=== PATIENT | male | born 1970 | race Caucasian/White ===

== ENCOUNTER → 2020-11-23 08:32 | Outpatient (CLI) | payer OTHER, SELFPAY ==
[2020-11-23 10:39] LABS: COVID19 -Nasal RAPID Negative (Negative)
== END ==
PROVIDERS: Visit Provider Nurse Practitioner Family
DX: Z20.822 Contact with and (suspected) exposure to COVID-19 (principal)
CPT/HCPCS: 87635; C9803

== ENCOUNTER 2021-11-22 22:01 | Emergency (ER) | payer OTHER, SELFPAY ==
[2021-11-22] VITALS (9 sets, daily range): BP systolic 111–164; BP diastolic 59–92; PULSE 88–108; RESP 12–25; TEMP 37.5; O2SAT 92–97; BMI 31.1
--- NOTE | 2021-11-22 22:19 | DI.RAD.S_ITS ---
PROCEDURE: XR CHEST 1V INDICATIONS: chest pain TECHNIQUE: One view of the chest was acquired. COMPARISON: None. FINDINGS: Surgical changes and devices: None. Lungs and pleura: Lungs are clear. No pleural effusions or pneumothorax. Mediastinum: Mediastinal contours appear normal. Heart size is normal. Bones and chest wall: No suspicious bony lesions. Overlying soft tissues appear unremarkable. IMPRESSION: No acute cardiopulmonary abnormalities or focal airspace disease. Dictated by: Gerber Crockett M.D. on 11/22/2021 at 22:34 Approved by: Gerebr Crockett M.D. on 11/22/2021 at 22:34
[2021-11-22 22:31] LABS: Add Manual Diff / Slide Review NO; Basophils Absolute Auto 0 /uL (0-100); Basophils Percent Auto 0.3 % (0-2); Eosinophils Absolute Auto 200 /uL (0-450); Eosinophils Percent Auto 1.2 % (2-4); Hematocrit 51.6 % (41-53); Hemoglobin 17.9 g/dL (13.5-17.5); Lymphocytes Absolute Auto 1300 /uL (1100-4500); Lymphocytes Percent Auto 9.1 % (25-40); Mean Corpuscular HGB Conc 34.6 % (30-36); Mean Corpuscular Hemoglobin 32.2 PG (26-34); Monocytes Absolute Auto 1400 /uL (0-900); Monocytes Percent Auto 10.2 % (3-14); Neutrophils Absolute Auto 11200 /uL (1500-7000); Neutrophils Percent Auto 79.2 % (50-75); Platelet Count 180 X10^3/uL (150-400); Red Blood Cell Count 5.55 X10^6/uL (4.5-5.9); Red Cell Distribution Width 12.7 % (11.6-14.8); White Blood Cell Count 14.1 X10^3/uL (4.5-11.0)
[2021-11-22 22:42] LABS: Alanine Aminotransferase 50 IU/L (<50); Albumin 4.6 g/dL (3.5-5.0); Albumin Globulin Ratio 1.4 (1.0-2.8); Alkaline Phosphatase 79 U/L (38-126); Aspartate Aminotransferase 35 IU/L (17-59); Bilirubin Total 0.8 mg/dL (0.2-1.3); Blood Urea Nitrogen 13 mg/dL (9-20); Calcium 9.3 mg/dL (8.4-10.2); Carbon Dioxide 28 mmol/L (22-32); Chloride 102 mmol/L (98-107); Creatine Kinase 43 U/L (55-170); Estimated Glomerular Filt Rate > 60 mL/min (>60); Globulin 3.4 g/dL (1.7-4.1); Glucose 164 mg/dL (70-100); Lipase 91 U/L (23-300); Potassium 3.2 mmol/L (3.4-5.1); Sodium 140 mmol/L (137-145)
--- NOTE | 2021-11-22 22:43 | ED_ITS ---
HPI - Chest Pain General Chief Complaint: Chest Pain Stated Complaint: irratic BP, Not feeling right Time Seen by Provider: 11/22/21 22:12 Source: patient Mode of arrival: Ambulatory Limitations: no limitations History of Present Illness HPI narrative: 51-year-old male. History of hypertension and [id number] diabetes. Also has a history of hypothyroidism. Received his COVID booster approximately 4 days ago. He states since that time he has felt ?off ?he has an appointment with his primary doctor scheduled for tomorrow morning because of these symptoms. He states this evening he was sitting on his couch when he started to have an uneasy feeling in his chest. He also states that his legs felt ?anxious ?he took an aspirin. He did take his blood pressure at home and it was elevated. He has taken his medications today. Since the onset of the symptoms he feels like things have improved somewhat. Related Data Home Medications Medication Instructions Recorded Confirmed levothyroxine 175 mcg tablet 175 mcg PO DAILY 10/19/20 12/08/20 (Synthroid) metformin 500 mg tablet 1,000 mg PO DAILY tab 10/19/20 12/08/20 telmisartan 80 mg tablet (Micardis) 80 mg PO DAILY 10/19/20 12/08/20 Allergies Allergy/AdvReac Type Severity Reaction Status Date / Time hay fever Allergy Mild sneezing, Uncoded 10/19/20 16:09 runny nose Review of Systems Review of Systems ROS Unobtainable: All systems reviewed & are unremarkable except as noted in HPI and below Constitutional Constitutional: Reports as per HPI and Reports system reviewed and no additional complaints, except as documented Cardiovascular Cardiovascular: Reports as per HPI and Reports system reviewed and no additional complaints, except as documented Respiratory Respiratory: Reports system reviewed and no additional complaints, except as documented Gastrointestinal Gastrointestinal: Reports system reviewed and no additional complaints, except as documented Musculoskeletal Musculoskeletal: Reports system reviewed and no additional complaints, except as documented Integumentary/Breasts Skin/Breast: Reports system reviewed and no additional complaints, except as documented Neurologic Neurologic: Reports system reviewed and no additional complaints, except as documented Hematologic/Lymphatic On Anticoagulants: No Patient History Medical History Essential hypertension Excessive daytime sleepiness Insomnia due to medical condition Obstructive sleep apnea, adult Periodic limb movement disorder (PLMD) Type 2 diabetes mellitus Surgical History (Updated 12/09/20 @ 00:23 by JOSHUA Bhat) Hx of thyroidectomy Family History (Updated 10/19/20 @ 16:34 by Reyna Adam CMA) Family/Other Hypertension Diabetes mellitus Heart disease Father Loud snoring Obesity Hypertension Diabetes mellitus Heart disease Mother Loud snoring Obesity Hypertension Heart disease Depression Family/Other Obesity Hypertension Depression Alcohol abuse Substance abuse Social History Smoking Status: Never smoker Smoking Status: Never smoker alcohol intake frequency: a few times a week Substance Use Type: does not use Exam Initial Vital Signs Initial Vital Signs: Vital Signs Temperature 99.5 F 11/22/21 22:14 Pulse Rate 98 H 11/22/21 22:14 Respiratory Rate 15 11/22/21 22:14 Blood Pressure 164/92 H 11/22/21 22:14 Pulse Oximetry 97 11/22/21 22:14 Const General: cooperative, healthy appearing, comfortable and well developed HENKY Head: normal to inspection and normocephalic Eyes General: appearance normal, both eyes and all related structures Neck Neck: normal visual inspection Chest Chest: normal inspection of the chest Resp Effort & Inspection: normal respiratory effort Auscultation: clear to auscultation bilaterally Cardio Rate: regular rate Rhythm: regular rhythm GI Inspection: normal to inspection Palpation: soft Skin General: no rashes or lesions noted Neuro General: patient alert, patient awake and moves all extremities Extrem General: normal to inspection and capillary refill normal Psych Appearance: grossly normal and well kempt Course Orders Ordered: ED Orders 11/22/21 22:19 XR chest 1V Stat EKG-12 Lead Stat 11/22/21 22:22 C-Reactive Protein Quant Stat Complete Blood Count AUTO DIFF Stat Comprehensive Metabolic Panel Stat Erythrocyte Sedimentation Rate Stat Lipase Stat Troponin & CK Cardiac Panel Stat 11/23/21 00:31 Troponin I Stat Discontinued Medications Nitroglycerin (Nitroglycerin 0.4 Mg Sl Tab) 0.4 mg SL [id number] PRN PRN Reason: Chest Pain Last Admin: 11/22/21 22:57 Dose: 0.4 mg Documented by: Admin: 11/22/21 22:52 Dose: 0.4 mg Documented by: Admin: 11/22/21 22:47 Dose: 0.4 mg Documented by: EVANGELIST Vital Signs Vital signs: Vital Signs - 8 hr 11/22/21 22:14 11/22/21 22:15 11/22/21 22:30 Temperature 99.5 F Pulse Rate 98 H 95 H 99 H Respiratory Rate 15 19 12 Blood Pressure 164/92 H Pulse Oximetry 97 94 95 11/22/21 22:32 11/22/21 22:47 11/22/21 22:52 Temperature Pulse Rate 97 H 95 H 106 H Respiratory Rate 23 Blood Pressure 152/88 H 152/88 H Pulse Oximetry 92 11/22/21 22:57 11/22/21 23:00 11/22/21 23:30 Temperature Pulse Rate 108 H 101 H 88 Respiratory Rate 21 25 H Blood Pressure 112/59 L 111/69 Pulse Oximetry 92 92 11/23/21 00:00 11/23/21 00:30 11/23/21 01:00 Temperature Pulse Rate 81 77 72 Respiratory Rate 23 21 23 Blood Pressure 113/74 130/79 122/72 Pulse Oximetry 93 95 93 MDM - Chest Pain Lab Data Attestation: I reviewed the patient's lab results. Result diagrams: 11/22/21 22:22 11/22/21 22:22 Labs: Lab Results 11/22/21 11/22/21 11/23/21 Range/Units 22:22 22:22 00:31 WBC 14.1 H (4.5-11.0) X10^3/uL RBC 5.55 (4.5-5.9) X10^6/uL Hgb 17.9 H (13.5-17.5) g/dL Hct 51.6 (41-53) % MCV 93.0 (80-100) fL MCH 32.2 (26-34) PG MCHC 34.6 (30-36) % RDW 12.7 (11.6-14.8) % Plt Count 180 (150-400) X10^3/uL Neut % (Auto) 79.2 H (50-75) % Lymph % (Auto) 9.1 L (25-40) % [place] % (Auto) 10.2 (3-14) % Eos % (Auto) 1.2 L (2-4) % Baso % (Auto) 0.3 (0-2) % Neut # (Auto) 12781 H (0212-5652) /uL Lymph # (Auto) 1300 (7094-3168) /uL [place] # (Auto) 1400 H (0-900) /uL Eos # (Auto) 200 (0-450) /uL Baso # (Auto) 0 (0-100) /uL ESR 2 (0-15) MM/HR Sodium 140 (137-145) mmol/L Potassium 3.2 L (3.4-5.1) mmol/L Chloride 102 (98-107) mmol/L Carbon Dioxide 28 (22-32) mmol/L BUN 13 (9-20) mg/dL Creatinine 0.93 (0.66-1.25) mg/dL Estimated GFR > 60 (>60) mL/min BUN/Creatinine Ratio 14.0 (6-22) Glucose 164 H (70-100) mg/dL Calcium 9.3 (8.4-10.2) mg/dL Total Bilirubin 0.8 (0.2-1.3) mg/dL AST 35 (17-59) IU/L ALT 50 H (<50) IU/L Alkaline Phosphatase 79 (38-126) U/L Total Creatine Kinase 43 L (55-170) U/L CK-MB (CK-2) TNP CK-MB (CK-2) Rel Index TNP Troponin I < 0.012 < 0.012 (0.01-0.034) ng/mL C-Reactive Protein 3.4 H (<1.0) mg/dL Total Protein 8.0 (6.3-8.2) g/dL Albumin 4.6 (3.5-5.0) g/dL Globulin 3.4 (1.7-4.1) g/dL Albumin/Globulin Ratio 1.4 (1.0-2.8) Lipase 91 (23-300) U/L Imaging Data Chest x-ray: Radiologist's Impression: [address] [address] XRay Report Signed Patient: Denver Lopez MR#: [id number] : 1970 Acct:[id number] Age/Sex: 51 / M Date of Service: 11/22/21 Loc: ED Accession Number: [id number] ?? Procedure: XR chest 1V Ordering Provider: Lanker,Colton D.O. PROCEDURE:? XR CHEST 1V ? INDICATIONS:? chest pain ? TECHNIQUE:? One view of the chest was acquired.? ? COMPARISON:? None. ? FINDINGS:? ? Surgical changes and devices:? None.? ? Lungs and pleura:? Lungs are clear.? No pleural effusions or pneumothorax.? ? Mediastinum:? Mediastinal contours appear normal.? Heart size is normal.? ? Bones and chest wall:? No suspicious bony lesions.? Overlying soft tissues appear unremarkable.? ? IMPRESSION:? No acute cardiopulmonary abnormalities or focal airspace disease. ? Dictated by: Gerber Crockett M.D. on 11/22/2021 at 22:34 ? ? Approved by: Gerber Crockett M.D. on 11/22/2021 at 22:34? ECG Data Attestation: I personally reviewed and interpreted this ECG as follows: Interpretation: Sinus rhythm Ventricular rate 92 Normal axis Normal QRS QTC Artifact noted in V3 V4 No ST T wave changes MDM Narrative Medical decision making narrative: Patient does have an unremarkable exam. His blood pressure was slightly elevated here in the ER however this improved during his stay. His EKG is unremarkable. Does have leukocytosis but no signs of any infection. His chest x-ray is unremarkable. Patient has troponins under negative x2 with the 2nd being greater than 6 hours of the onset of his symptoms. Had a discussion with him regarding his symptoms. Did discuss that he is at risk for coronary artery disease given his other comorbidities. He has had a stress test in the past without was several years ago. We discussed options to include being admitted to the hospital for further risk stratification and stress testing versus being discharged home. Discussed risks and benefits of each of these options. Did inform him that the most conservative measures would be to admit him given his presentation and his other comorbidities. He expressed understanding of this. His is at bedside for the discussion. Patient states that he would feel more comfortable being discharged home. He does have an appoint with his primary doctor artery scheduled. I informed him that he does need to talk with his primary doctor about outpatient stress test and that he needs to return to the emergency department if his symptoms return or worsen. He expressed understanding agree with plan. Patient is alert oriented x3. GCS 15. In my opinion has capacity make decisions. Discharge Plan Departure Patient Disposition: Home Clinical Impression: Hypertension, Chest pain Instructions: Essential Hypertension, DI for Chest Pain Activity Restrictions/Additional Instructions: I do recommend that you continue to take all of your medications as directed. Keep your appointment that you have with your primary doctor later today and highly recommend that you discuss the referral to have an outpatient stress test. Until then return to the emergency department for any new or worsening symptoms. Prescriptions: No Action levothyroxine [Synthroid] 175 mcg tablet 175 mcg PO DAILY 0RF telmisartan [Micardis] 80 mg tablet 80 mg PO DAILY 0RF metformin 500 mg tablet 1,000 mg PO DAILY 0RF
[2021-11-22] MEDS: NITROGLYCERIN 0.4 MG SL TAB SL ×3 (22:47→22:57)
[2021-11-22 22:50] LABS: Erythrocyte Sedimentation Rate 2 MM/HR (0-15)
[2021-11-22 22:54] LABS: Troponin I < 0.012 ng/mL (0.01-0.034)
[2021-11-22 23:07] LABS: C-Reactive Protein Quant 3.4 mg/dL (<1.0); HEMOLYSIS < 15 (0-50)
[2021-11-23] VITALS: BP 113/74; PULSE 81; RESP 23; O2SAT 93
[2021-11-23 00:30] VITALS: BP 130/79; PULSE 77; RESP 21; O2SAT 95
[2021-11-23 01:00] VITALS: BP 122/72; PULSE 72; RESP 23; O2SAT 93
[2021-11-23 01:02] LABS: Troponin I < 0.012 ng/mL (0.01-0.034)
== END 2021-11-23 01:26 | disposition home or self-care (01) ==
PROVIDERS: Emergency Provider Emergency Medicine
DX: I10 Essential (primary) hypertension (principal); R07.9 Chest pain, unspecified
CPT/HCPCS: 36415; 71045; 80053; 82550; 83690; 84484; 85025; 85651; 86140; 93005; 93010; 99284

== ENCOUNTER → 2024-01-20 07:57 | Outpatient (CLI) | payer OTHER, SELFPAY ==
--- NOTE | 2024-01-20 08:01 | DI.US.S_ITS ---
PROCEDURE: US PERIPH VENOUS LOW EXTREM BI INDICATIONS: EDEMA TECHNIQUE: Real-time imaging, as well as color and pulse Doppler interrogation, were performed of the deep veins of both legs from the inguinal ligament to the popliteal fossa, with documentation of the visualized calf veins. COMPARISON: None. FINDINGS: Right: The common femoral, femoral, popliteal, and the visualized calf veins are normally compressible, and free of intraluminal thrombus. Color and pulse Doppler demonstrate normal phasic intravascular flow. There is normal augmentation response to distal compression maneuver. Left: The common femoral, femoral, popliteal, and the visualized calf veins are normally compressible, and free of intraluminal thrombus. Color and pulse Doppler demonstrate normal phasic intravascular flow. There is normal augmentation response to distal compression maneuver. IMPRESSION: No findings of deep venous thrombosis in either lower extremity. Dictated by: Shabbir Tapia M.D. on 01/20/2024 at 12:13 Approved by: Shabbir Tapia M.D. on 01/20/2024 at 12:13
== END ==
LOC: US 07:59
PROVIDERS: Referring Provider Family Medicine; Visit Provider Family Medicine
DX: R60.9 Edema, unspecified (principal)
CPT/HCPCS: 93970

== ENCOUNTER → 2025-02-17 08:46 | Outpatient (CLI) | payer OTHER, SELFPAY ==
--- NOTE | 2025-02-17 08:52 | DI.RAD.S_ITS ---
PROCEDURE: XR LUMBAR SPINE 2-3V INDICATIONS: Back Pain TECHNIQUE: 3 views of the lumbar spine were acquired. COMPARISON: None. FINDINGS: Bones: 5 [id number] vertebrae are present. Slight loss of normal lumbar lordosis. There is normal bony alignment. Severe L5-S1 disc height loss with adjacent endplate sclerosis and multilevel anterior osteophytosis. No vertebral body compression fractures. No suspicious bony lesions. Soft tissues: Overlying bowel gas pattern is normal. No suspicious soft tissue calcifications. IMPRESSION: Degenerative change of the lumbar spine without evidence of acute bony abnormality. Dictated by: Otis Matthews M.D. on 02/17/2025 at 21:18 Approved by: Otis Matthews M.D. on 02/17/2025 at 22:17
--- NOTE | 2025-02-17 09:22 | DI.ECHO.S_ITS ---
[facility]+ [facility] : : [address] : : [place] : : [id number] : : Phone: [phone] Echocardiogram Report + + :Name: ZEINA HERNANDEZ Study Date: 02/17/2025 Height: 72 in : :Hospital ReadingLocation: Weight: 233 lb : : Gender: Male BSA: 2.3 m2 : :: 1970 Age: 54 yrs BP: 114/76 mmHg: :Reason For Study: HYPERTENSION : :Ordering Physician: LAWRENCE, : :PALOMA Performed By: Rupesh Flanagan : :Referring: PALOMA BRAVO : + + Interpretation Summary Normal sinus rhythm with wide QRS complexes. HR is 53-66 bpm during the exam. Normal LV size and wall thickness; low normal wall motion and LV systolic function. EF is 50-55%. Normal chamber sizes. No significant valvular abnormalities. No prior study available for comparison. Procedure: A two-dimensional transthoracic echocardiogram with color flow and Doppler was performed. The study quality was technically good. There is no prior echocardiogram noted for this patient. The patient was in normal sinus rhythm during the exam. Left Ventricle: The left ventricle is normal in size. There is normal left ventricular wall thickness. There is no ventricular septal defect visualized. The ejection fraction is estimated to be 50-55%. There are no focal wall motion abnormalities. Diastolic parameters suggest a relaxation abnormality of the left ventricle, consistent with probable normal filling pressures. Right Ventricle: The right ventricle is mildly dilated. The right ventricular systolic function is normal. Atria: The left atrial size is normal. Right atrial size is normal. There is no Doppler evidence for an interatrial shunt. Mitral Valve: There is mild mitral annular calcification. The mitral valve leaflets appear normal. There is no evidence of stenosis, fluttering, or prolapse. There is no mitral regurgitation noted. Aortic Valve: The aortic valve is trileaflet. The aortic valve opens well. No aortic regurgitation is present. Tricuspid Valve: The tricuspid valve leaflets are thin and pliable. No tricuspid regurgitation. Pulmonic Valve: The pulmonic valve is not well seen, but is grossly normal. There is trace pulmonic regurgitation. Great Vessels: The aortic root is mildly dilated. The dimensions of the ascending aorta are normal. The pulmonary artery is not well visualized, but is probably normal size. The inferior vena cava was not visualized. Pericardium/ Pleura There is no pericardial effusion. MMode/2D Measurements & Calculations LVIDd: 5.5 cm LVOT diam: 2.1 cm LVIDs: 3.8 cm Ao root diam: 3.8 cm FS: 30.9 % asc Aorta Diam: 3.4 cm EPSS: 0.92 cm IVSd: 0.99 cm LVPWd: 0.99 cm LV philip. diameter/BSA (cm/m^2): 2.4 LV sys. diameter/BSA (cm/m^2): 1.7 LA A2 area: 19.4 cm2 RA long axis: 5.2 cm LA A4 area: 20.6 cm2 RA area: 17.7 cm2 LA length (vol): 6.0 cm RA vol: 51.6 ml LA vol: 56.9 ml RA : 22.7 ml/m2 LA vol index: 25.0 ml/m2 RVD1 (basal): 4.2 cm RVD2 (mid): 3.6 cm TAPSE: 1.8 cm Doppler Measurements & Calculations Ao V2 max: 127.7 cm/sec LVOT Max Deshawn: 121.9 cm/sec Ao V2 mean: 93.1 cm/sec LV V1 max P.9 mmHg Ao max P.5 mmHg LV V1 VTI: 26.1 cm Ao mean P.8 mmHg KRIS(I,D): 3.3 cm2 Ao V2 VTI: 27.7 cm KRIS(V,D): 3.3 cm2 sev ratio: 0.94 KRIS indexed to BSA (cm^2/m^2): 1.4 MV E max deshawn: 47.1 cm/sec PA V2 max: 110.5 cm/sec MV A max deshawn: 62.1 cm/sec PA V2 mean: 75.2 cm/sec MV E/A: 0.76 PA mean P.5 mmHg Med Peak E' Deshawn: 7.3 cm/sec PA pr(Accel): 65.3 mmHg E/E' med: 6.5 Lat Peak E' Deshawn: 7.7 cm/sec E/E' lat: 6.1 E/e' average: 6.3 MV dec time: 0.24 sec SV(LVOT): 90.8 ml Electronically signed by: Za Pack M.D. on Reading Physician:02/18/2025 12:29 AM
[2025-02-17 09:42] LABS: Appearance Urine UA SL CLOUDY; Bilirubin Urine UA NEGATIVE (NEGATIVE); Color Urine UA YELLOW; Glucose Urine UA 3+ g/dL (Negative); Ketones Urine UA NEGATIVE (NEGATIVE); Leukocyte Esterase Urine UA NEGATIVE (NEGATIVE); Nitrite Urine UA NEGATIVE (Negative); Occult Blood Urine UA NEGATIVE (Negative); Protein Urine UA NEGATIVE (Negative); Specific Gravity Urine UA 1.015 (1.000-1.035); Urobilinogen Urine UA 1.0 E.U./dL (0.2); pH Urine UA 5.5 (4.5-8.0)
[2025-02-17 10:02] LABS: Culture Indicated Urine Cult Not Indicated
[2025-02-17 10:07] LABS: Alanine Aminotransferase 98 IU/L (<50); Albumin 4.7 g/dL (3.5-5.0); Albumin Globulin Ratio 1.5 (1.0-2.8); Alkaline Phosphatase 75 U/L (38-126); Blood Urea Nitrogen 20 mg/dL (9-20); Calcium 9.5 mg/dL (8.4-10.2); Carbon Dioxide 29 mmol/L (22-32); Chloride 99 mmol/L (98-107); Estimated Glomerular Filt Rate > 60 mL/min (>60); Globulin 3.1 g/dL (1.7-4.1); Glucose 122 mg/dL (70-99); HEMOLYSIS 16 (0-50); Potassium 3.7 mmol/L (3.4-5.1); Sodium 138 mmol/L (137-145); Total Protein 7.8 g/dL (6.3-8.2)
[2025-02-17 10:22] LABS: Vitamin D 25 Hydroxy (D3) 45.4 ng/mL (30.0-100.0)
[2025-02-17 10:29] LABS: Free T3, Triiodothyronine Free 3.77 pg/mL (2.77-5.27); Free T4, Direct Thyroxine 1.42 ng/dL (0.78-2.19)
[2025-02-17 10:43] LABS: Thyroid Stimulating Hormone 6.74 uIU/mL (0.47-4.68)
== END ==
LOC: ECHO 08:50
PROVIDERS: Referring Provider Chiropractor; Visit Provider Chiropractor
DX: I34.81 Nonrheumatic mitral (valve) annulus calcification (principal); I10 Essential (primary) hypertension; M47.816 Spondylosis without myelopathy or radiculopathy, lumbar region; I77.810 Thoracic aortic ectasia; M54.9 Dorsalgia, unspecified; E03.9 Hypothyroidism, unspecified; E11.9 Type 2 diabetes mellitus without complications; E55.9 Vitamin D deficiency, unspecified
CPT/HCPCS: 36415; 72100; 80053; 81001; 82306; 84439; 84443; 84481; 93306